=== PATIENT | female | born 1995 | race Hispanic/Latino ===

== ENCOUNTER 2017-06-16 02:54 | Observation (INO) | payer OTHER ==
[2017-06-16] MEDS ORDERED: Sodium Chloride 0.9% 1,000 ML IV STA (03:16)
[2017-06-16] MEDS ORDERED: Iohexol 240 (50 ml) PO ONE (03:21)
[2017-06-16 03:32] LABS: RBC URINE 16 /hpf (0-3); URINE BACTERIA RARE (<OCC); URINE BILIRUBIN NEGATIVE (NEGATIVE); URINE BLOOD NEGATIVE (NEGATIVE); URINE COLOR YELLOW (YELLOW); URINE GLUCOSE (UA) NEG (Normal); URINE KETONE NEGATIVE (NEGATIVE); URINE LEUKOCYTE ESTERASE MOD Leu/uL (Negative); URINE PROTEIN 30 mg/dL (NEGATIVE); WBC URINE 1 /hpf (0-5)
[2017-06-16] MEDS ORDERED: Iohexol 240 (50 ml) ONE (03:32)
[2017-06-16 03:40] LABS: BASO % 0.2 % (0.0-2.0); EOS # 0.3 K/uL (0.0-0.7); EOS % 1.8 % (0.0-4.0); HEMATOCRIT 37.5 % (34.0-47.0); LYMPH # 1.6 K/uL (1.0-4.3); LYMPH % 10.7 % (20.0-40.0); MEAN CELL VOLUME 81.4 fl (81.0-99.0); MEAN CORPUSCULAR HEMOGLOBIN 26.9 pg (27.0-31.0); MEAN PLATELET VOLUME 7.4 fl (7.2-11.7); MONO # 0.6 K/uL (0.0-0.8); MONO % 4.4 % (0.0-10.0); NEUT # 12.1 K/uL (1.8-7.0); NEUT % 82.9 % (50.0-75.0); RED CELL DISTRIBUTION WIDTH 14.1 % (11.5-14.5); WHITE BLOOD COUNT 14.5 K/uL (4.8-10.8)
--- NOTE | 2017-06-16 03:46 | ED PDOC ---
HPI: Abdomen Time Seen by Provider: 06/16/17 03:07 Chief Complaint (Nursing): Abdominal Pain Chief Complaint (Provider): Abdominal pain History Per: Patient History/Exam Limitations: no limitations Onset/Duration Of Symptoms: Hrs (x5) Current Symptoms Are (Timing): Still Present Context: Food Associated Symptoms: Nausea, Vomiting, Constipation. denies: Diarrhea Additional Complaint(s): Summer Quinn is a 21 year old female, with no past medical history, who presents to the emergency department complaining of an acute onset abdominal pain associated with nausea and vomiting onse since 10pm after eating [place]anche[place]. Patient describes the pain as constant and rates it a 9 out of 10. She did not take any medication prior to arrival. Patient denies diarrhea but states las bowel movement was at 8pm. No further medical complaints. PMD: None provided. Past Medical History Reviewed: Historical Data, Nursing Documentation, Vital Signs Vital Signs: Last Vital Signs Temp 98.1 F 06/17/17 00:18 Pulse 76 06/17/17 00:18 Resp 20 06/17/17 00:18 BP 103/57 L 06/17/17 00:18 Pulse Ox 100 06/17/17 00:18 - Family History Family History: States: Unknown Family Hx - Social History Current smoker - smoking cessation education provided: No Alcohol: Occasional Drugs: Denies - Home Medications Home Medications: Ambulatory Orders Medication Instructions Recorded No Known Home Med 06/16/17 - Allergies Allergies/Adverse Reactions: Allergies Allergy/AdvReac Type Severity Reaction Status Date / Time No Known Allergies Allergy Verified 10/03/15 11:20 Review of Systems ROS Statement: Except As Marked, All Systems Reviewed And Found Negative Gastrointestinal: Positive for: Nausea, Vomiting (x1 episode), Abdominal Pain, Constipation. Negative for: Diarrhea Physical Exam - Reviewed Nursing Documentation Reviewed: Yes Vital Signs Reviewed: Yes - Physical Exam Appears: Positive for: Non-toxic, No Acute Distress, Uncomfortable Head Exam: Positive for: ATRAUMATIC, NORMAL INSPECTION, NORMOCEPHALIC Skin: Positive for: Normal Color, Warm, Dry Eye Exam: Positive for: EOMI, Normal appearance, PERRL Neck: Positive for: Normal, Painless ROM, Supple Cardiovascular/Chest: Positive for: Regular Rate, Rhythm. Negative for: Murmur Respiratory: Positive for: Normal Breath Sounds. Negative for: Respiratory Distress Gastrointestinal/Abdominal: Positive for: Bowel Sounds, Tenderness (mild diffused abd tenderness worst in epigastric and RUQ area. ) Back: Positive for: Normal Inspection (No midline tenderness). Negative for: L CVA Tenderness, R CVA Tenderness Extremity: Positive for: Normal ROM Neurologic/Psych: Positive for: Alert, Oriented - Laboratory Results Result Diagrams: 06/16/17 03:30 06/16/17 03:30 - ECG O2 Sat by Pulse Oximetry: 99 (RA) Pulse Ox Interpretation: Normal Medical Decision Making Medical Decision Making: Initial Impression: 21 year old female with abdominal postpandrial Initial Plan: --Abd Pelvis PO & IV Contrast [CT] --CMP --Lipase --Urine dipstick --Urine --CBC w/ differential --Pepcid 20 mg IV --Omnipaque 50 ml --Morphine 4 mg IVP --NS IV 1,000 ml @ 1,000 mls/hr --Zofran Inj 4mg IV --reevaluation -Pt signed out to Dr. Mo pending US Scribe Attestation: Documented by Omid Lawson, acting as a scribe for Olaf Arce MD. Provider Scribe Attestation: All medical record entries made by the Scribe were at my direction and personally dictated by me. I have reviewed the chart and agree that the record accurately reflects my personal performance of the history, physical exam, medical decision making, and the department course for this patient. I have also personally directed, reviewed, and agree with the discharge instructions and disposition. Disposition - Clinical Impression Clinical Impression: Abdominal pain, IUD migration, Disorder of appendix - Patient ED Disposition Is Patient to be Admitted: Transfer of Care - Disposition Disposition: Transfer of Care Disposition Time: 07:00 Condition: FAIR Patient Signed Over To: Sea Mo
[2017-06-16 03:47] LABS: ALB/GLOB RATIO 1.4 (1.0-2.1); ALKALINE PHOSPHATASE 73 U/L (38-126); ALT/SGPT 31 U/L (9-52); AST/SGOT 26 U/L (14-36); BILIRUBIN,TOTAL 0.1 mg/dl (0.2-1.3); BLOOD UREA NITROGEN 13 mg/dl (7-17); CALCIUM 8.8 mg/dL (8.4-10.2); CARBON DIOXIDE 24 mmol/L (22-30); CHLORIDE 105 mmol/L (98-107); GFR AFRICAN-AMERICAN > 60; GLUCOSE,RANDOM 101 mg/dL (65-105); LIPASE 120 U/L (23-300); POTASSIUM 3.7 MMOL/L (3.6-5.0); SODIUM 142 mmol/l (132-148); TOTAL PROTEIN 7.7 G/DL (6.3-8.2)
[2017-06-16] MEDS ORDERED: Sodium Chloride 0.9% 50 ML IV ONE (06:00)
[2017-06-16] MEDS ORDERED: Iohexol 300 100 ML IJ ONE (06:00)
--- NOTE | 2017-06-16 07:36 | ED PDOC ---
- Laboratory Results Result Diagrams: 06/16/17 03:30 06/16/17 03:30 - ECG O2 Sat by Pulse Oximetry: 99 (RA) Pulse Ox Interpretation: Normal Medical Decision Making Medical Decision Making: Time: 653 --Abd/Pelvis CT FINDINGS: Lower thorax: Small hiatal hernia with delayed emptying at the gastroesophageal reflux. There is bibasilar atelectasis. ABDOMEN: Liver: Fatty liver. Gallbladder and bile ducts: Unremarkable. No ductal dilation. Pancreas: Unremarkable. No mass. No ductal dilation. Spleen: Unremarkable. No splenomegaly. Adrenals: Unremarkable. No mass. Kidneys and ureters: Unremarkable. No solid mass. No hydronephrosis. Stomach and bowel: Large amount of stool in the colon. Correlation with patient' s clinical history of constipation is recommended. There are nonspecific fluid filled small bowel loops. These findings can represent ileus versus enteritis versus slow transit versus peristalsis. Appendix: There is fluid distention of the appendix seen on image 142 series 3 measuring 7 mm. No obstructing appendicolith is identified. No significant surrounding inflammatory change is noted. Borderline indeterminate appendix.Correlation with clinical evaluation and further workup or followup as recommended by patient's clinical data. PELVIS: Bladder: Unremarkable. Reproductive: Endometrial stripe thickening or fluid. There is migration of the IUD into the lower uterine segment. MOTION PICTURE OPERATOR evaluation is recommended. Enhancing involuting right ovarian dominant follicle measuring 1.7 cm. High riding left ovary with left ovarian dominant cyst measuring 3.1 cm. ABDOMEN and PELVIS: Intraperitoneal space: Small amount of free pelvic fluid. No free air. Bones/joints: No acute fracture. No dislocation. Soft tissues: Bilateral inguinal herniation of fat. Vasculature: Unremarkable. No abdominal aortic aneurysm. Lymph nodes: Bilateral groin lymph nodes. IMPRESSION: 1. Endometrial stripe thickening or fluid. There is migration of the IUD into the lower uterine segment. MOTION PICTURE OPERATOR evaluation is recommended. 2. Small amount of free pelvic fluid. 3. Enhancing involuting right ovarian dominant follicle measuring 1.7 cm. High riding left ovary with left ovarian dominant cyst measuring 3.1 cm. 4. There is mild fluid distention of the appendix seen on image 142 series 3 measuring 7 mm. No obstructing appendicolith is identified. No significant surrounding inflammatory change is noted. Borderline indeterminate appendix.Correlation with clinical evaluation and further workup or followup as recommended by patient's clinical data. --Transvag US ordered for further investigation. Time: 700 --Patient endorsed from Dr. Arce to me. --Pending Transvaginal US, reevaluation, and final disposition. Time: 1035 --Transvag US FINDINGS: UTERUS: Measures 7.3 x 5.4 x 3.7 cm. Normal in size and appearance. No fibroid or other mass lesion seen. ENDOMETRIUM: Measures 6 mm in diameter. There is an IUD seen within central uterine cavity, however this is noted to be within the lower uterine segment. This appears to have migrated from normal position but should be correlated clinically. This was noted on the CT scan. No significant fluid or endometrial complex mass is identified. CERVIX: No cervical abnormality identified. RIGHT OVARY: Measures 3.8 x 3.0 x 2.5 cm. No solid mass. Normal flow. LEFT OVARY: Measures 2.5 x 2.2 x 1.1 cm. No solid mass. Normal flow. FREE FLUID: Minor amount of fluid in the cul-de-sac. OTHER FINDINGS: None. IMPRESSION: IUD noted within the lower uterine segment region and will require further clinical follow-up and gynecologic consultation. No evidence of adnexal mass. No ultrasound evidence of torsion. Scribe Attestation: Documented by Megan Velasquez, acting as a scribe for Sea Mo MD. Provider Scribe Attestation: All medical record entries made by the Scribe were at my direction and personally dictated by me. I have reviewed the chart and agree that the record accurately reflects my personal performance of the history, physical exam, medical decision making, and the department course for this patient. I have also personally directed, reviewed, and agree with the discharge instructions and disposition. 1110: Stable. AAOx3. IUD in uterine segment. OBGYN called. 1122: Dr. Pittman will evaluate pt. 1245: Dr. Pittman removed IUD. Concern for CT findings of appendix. Surgery paged. 1259: Stable. Dr. Adame to see pt. Wants admit for obs. Spoke with Dr. Izaguirre. Will admit obs. No antibiotics at this time. Disposition - Clinical Impression Clinical Impression: Abdominal pain, IUD migration, Disorder of appendix - POA Present On Arrival: None - Disposition Disposition: Hospitalized as Observation Patient Disposition Time: 13:04 Condition: STABLE
--- NOTE | 2017-06-16 09:24 | CT ---
PROCEDURE: CT Abdomen and Pelvis with contrast HISTORY: abd pain COMPARISON: 12/21/2014 TECHNIQUE: Contrast dose: 95 milliliters omni 300 Radiation dose: Total exam DLP = 1015 mGy-cm. This CT exam was performed using one or more of the following dose reduction techniques: Automated exposure control, adjustment of the mA and/or kV according to patient size, and/or use of iterative reconstruction technique. FINDINGS: LOWER THORAX: No focal infiltrate is seen. Minimal stable scarring or atelectasis is seen laterally in the right lower lobe. Distal esophagus is unremarkable. There is moderate distention of the stomach with oral contrast and debris. No gastric wall thickening is seen. Duodenum is unremarkable. LIVER: No focal liver mass is seen. Liver is mildly fatty infiltrated without evidence of intrahepatic ductal dilatation. GALLBLADDER AND BILE DUCTS: Unremarkable. PANCREAS: Unremarkable. No gross lesion or ductal dilatation. SPLEEN: Unremarkable. ADRENALS: Unremarkable. No mass. KIDNEYS AND URETERS: Unremarkable. No hydronephrosis. No solid mass. VASCULATURE: Unremarkable. No aortic aneurysm. BOWEL: Some mild fluid-filled small bowel loops and contrast filled small bowel loops are noted without fold thickening. No small bowel obstruction is seen. There is additionally mild to moderate residual fecal material throughout the colon without colonic wall thickening or pericolonic inflammatory change. Rectosigmoid region is unremarkable. APPENDIX: Appendix is noted to be mildly distended and fluid-filled without periappendiceal inflammatory changes. This should be further correlated with patient's exam and laboratory values. PERITONEUM: No free intraperitoneal air is noted. No mesenteric thickening is noted. Minimal cul-de-sac fluid is noted, more than likely physiologic. LYMPH NODES: Unremarkable. No enlarged lymph nodes. BLADDER: Unremarkable. REPRODUCTIVE: There is an intrauterine device appreciated is noted within the central uterine canal, although appears slightly lower than normally expected possibly within the lower uterine segment. Correlation for position is suggested. There is also mild amount of endometrial complex fluid identified which could be related to phase of menstruation. A few small right ovarian follicles are noted. One appears to have some slight enhancement and may reflect involuting follicle. Left ovary contains a few small follicles but is otherwise normal in size. BONES: No acute fracture. OTHER FINDINGS: None. IMPRESSION: Migration of the patient's intrauterine device into the lower uterine segment region. Gynecologic evaluation is suggested. Small amount of nonspecific low-density fluid in the endometrial canal. Small bilateral ovarian follicles. Mildly distended appendix with fluid measuring up to 7 millimeters. No periappendiceal inflammatory changes. Correlation with patient's laboratory values and exam would be suggested. Appendicitis cannot fully be excluded. Probable mild nonspecific and possible physiologic fluid within the cul-de-sac. No evidence of bowel obstruction. Distended stomach with oral contrast and debris. This agrees with preliminary report.
--- NOTE | 2017-06-16 10:37 | US ---
HISTORY: IUD; lower abd pain COMPARISON: CT scan same day TECHNIQUE: Real-time transabdominal and transvaginal ultrasound examination of the pelvis were performed. FINDINGS: UTERUS: Measures 7.3 x 5.4 x 3.7 cm. Normal in size and appearance. No fibroid or other mass lesion seen. ENDOMETRIUM: Measures 6 mm in diameter. There is an IUD seen within central uterine cavity, however this is noted to be within the lower uterine segment. This appears to have migrated from normal position but should be correlated clinically. This was noted on the CT scan. No significant fluid or endometrial complex mass is identified. CERVIX: No cervical abnormality identified. RIGHT OVARY: Measures 3.8 x 3.0 x 2.5 cm. No solid mass. Normal flow. LEFT OVARY: Measures 2.5 x 2.2 x 1.1 cm. No solid mass. Normal flow. FREE FLUID: Minor amount of fluid in the cul-de-sac. OTHER FINDINGS: None. IMPRESSION: IUD noted within the lower uterine segment region and will require further clinical follow-up and gynecologic consultation. No evidence of adnexal mass. No ultrasound evidence of torsion.
--- NOTE | 2017-06-16 13:42 | CP.PCM.HP ---
History of Present Illness - History of Present Illness History of Present Illness: CC: ABD PAIN HPI: 21 F no PMH presents with a one day hx of acute onset mod to severe cramping RLQ abdominal pain, waxing and waning in nature, eventually migrating to midepigastric area, associated with one episode of NBNB emesis and a feeling of bloating. In ER, pt was found to have a displaced IUD, which was removed by OBGYN. Pt was also seen by surgery for equivocal imaging results for acute appendicitis. WBC 14.5, afebrile, HD stable, +tenderness RLQ. Will place pt on OBS and reassess tomorrow. No antibiotics, pain control. ROS: Per HPI, all other systems reviewed and neg PMH: denies PSH: denies FH: denies SH: denies tobacco, ETOH, IVDU NKDA Vitals Reviewed GEN: WDWN, ALERT, COOPERATIVE HEENT: NCAT, PERRL, EOMI HEART: RRR, +S1S2, NO MRG LUNG: CTAB, NO WRR ABD: SOFT, +tender RLQ, mild distension, NO HSM, NO MASSES EXT: NORMAL PEDAL PULSES, GOOD CAPILLARY REFILL NEURO: AAOX3, STRENGTH EQUAL BILATERAL UPPER AND LOWER EXTREMITIES SKIN: WARM, DRY PSYCH: NORMAL MOOD, NORMAL AFFECT LABS 06/16/17 03:30 06/16/17 03:30 IMAGING STUDIES Pelvis/Transvaginal US: IUD noted in lower uterine segment region and will require further clinical follow up and obstetrics gynecology md consultation. CT abdomen and pelvis PO and IV contrast: Migration of IUD into lower uterine segment region. Small amount of nonspecific low density fluid in the endometrial canal. Bilateral ovarian follicles, small. Mildly distended appendix fluid measuring up to 7 mm. No [place] and see old inflammatory changes. Correlation with lab values and exam suggested. Appendicitis cannot be fully excluded. Next Probable mid nonspecific and possible physiologic fluid within the cul-de-sac. No bowel obstruction. Distended stomach with oral contrast and debris. ASSESSMENT AND PLAN 21 F no PMH presents with a one day hx of acute onset mod to severe cramping RLQ abdominal pain, waxing and waning in nature, eventually migrating to midepigastric area, associated with one episode of NBNB emesis and a feeling of bloating. In ER, pt was found to have a displaced IUD, which was removed by OBGYN. Pt was also seen by surgery for equivocal imaging results for acute appendicitis. WBC 14.5, afebrile, HD stable, +tenderness RLQ. Will place pt on OBS and reassess tomorrow. No antibiotics, pain control. Discussed with ER physician. Abdominal pain Concern for appendicitis CT equivocal for appendicitis Surgery consultation Dr. Adame, discussed, no antibiotics at this time. Will observe, and reassess tomorrow. repeat labs in a.m. Displaced IUD Transvaginal ultrasound confirmed as well as CT abdomen and pelvis PIPE FITTER MAINTENANCE consulted in ER IUD successfully removed by PIPE FITTER MAINTENANCE in ER. Present on Admission - Present on Admission Any Indicators Present on Admission: No Past Patient History - Past Social History Alcohol: Occasional Drugs: Denies - PSYCHIATRIC Hx Substance Use: No - SURGICAL HISTORY Hx Surgeries: No - ANESTHESIA Hx Anesthesia: No Meds Allergies/Adverse Reactions: Allergies Allergy/AdvReac Type Severity Reaction Status Date / Time No Known Allergies Allergy Verified 10/03/15 11:20 Results - Vital Signs Recent Vital Signs: Last Vital Signs Temp 98.5 F 06/16/17 10:29 Pulse 69 06/16/17 10:29 Resp 19 06/16/17 10:29 BP 117/68 06/16/17 10:29 Pulse Ox 99 06/16/17 13:04 - Labs Result Diagrams: 06/16/17 03:30 06/16/17 03:30 Labs: Laboratory Results - last 24 hr 06/16/17 06/16/17 06/16/17 03:22 03:30 03:30 WBC 14.5 H D RBC 4.61 Hgb 12.4 Hct 37.5 MCV 81.4 D MCH 26.9 L MCHC 33.0 RDW 14.1 Plt Count 406 H MPV 7.4 Neut % (Auto) 82.9 H Lymph % (Auto) 10.7 L [place] % (Auto) 4.4 Eos % (Auto) 1.8 Baso % (Auto) 0.2 Neut # 12.1 H Lymph # 1.6 [place] # 0.6 Eos # 0.3 Baso # 0.0 Sodium 142 Potassium 3.7 Chloride 105 Carbon Dioxide 24 Anion Gap 16 BUN 13 Creatinine 0.7 Est GFR ( Amer) > 60 Est GFR (Non-Af Amer) > 60 Random Glucose 101 Calcium 8.8 Total Bilirubin 0.1 L AST 26 ALT 31 Alkaline Phosphatase 73 Total Protein 7.7 Albumin 4.5 Globulin 3.2 Albumin/Globulin Ratio 1.4 Lipase 120 Urine Color Yellow Urine Clarity Cloudy Urine pH 6.0 Ur Specific [place] 1.031 H Urine Protein 30 Urine Glucose (UA) Neg Urine Ketones Negative Urine Blood Negative Urine Nitrate Negative Urine Bilirubin Negative Urine Urobilinogen 2.0 H Ur Leukocyte Esterase Mod Urine RBC (Auto) 16 H Urine Microscopic WBC 1 Ur Squamous Epith Cells 16 H Amorphous Sediment Occ H Urine Bacteria Rare
--- NOTE | 2017-06-16 18:11 | CP.PCM.CON ---
History of Present Illness - History of Present Illness History of Present Illness: General Surgery consult for Dr. Adame Consulted for: RLQ abdominal pain, R/O appendicitis Patient is a 21F with no significant PMH who presents to the ER with one day of right lower quadrant abdominal pain. Patient states that pain began last night and was originally in the bilateral lower quadrants and now is only in the RLQ. Patient states that she also has middle back pain. Patient denies any nausea, vomiting, diarrhea, constipation, dysuria, hematuria, fevers, chills, chest pain , SOB or any other symptoms. Patient's last menstrual period was on 05/27 PMH: none PSH: none All NKDA Social: denies tobacco or illicit drugs, drinks 5 beers/week Review of Systems - Review of Systems All systems: reviewed and no additional remarkable complaints except (as per HPI ) - Constitutional Constitutional: Anorexia. absent: Chills, Fever - Respiratory Respiratory: absent: Cough, Dyspnea, Dyspnea on Exertion - Gastrointestinal Gastrointestinal: As Per HPI, Abdominal Pain, Bloating. absent: Diarrhea, Hematochezia, Melena, Nausea, Vomiting - Genitourinary Genitourinary: absent: Change in Urinary Stream, Difficulty Urinating, Dysuria, Hematuria - Reproductive: Female Reproductive:Female: As Per HPI - Menstruation Menstruation: As Per HPI - Musculoskeletal Musculoskeletal: Back Pain. absent: Numbness, Tingling - Neurological Neurological: absent: Numbness, Focal Weakness, Tingling, Weakness Past Patient History - Past Medical History & Family History Past Medical History?: No - Past Social History Alcohol: Occasional Drugs: Denies - CARDIAC Hx Cardiac Disorders: No - PULMONARY Hx Respiratory Disorders: No - NEUROLOGICAL Hx Neurological Disorder: No - HEENT Hx HEENT Problems: No - RENAL Hx Chronic Kidney Disease: No - ENDOCRINE/METABOLIC Hx Endocrine Disorders: No - HEMATOLOGICAL/ONCOLOGICAL Hx AIDS: No Hx Human Immunodeficiency Virus (HIV): No - INTEGUMENTARY Hx Dermatological Problems: No - MUSCULOSKELETAL/RHEUMATOLOGICAL Hx Musculoskeletal Disorders: No - GASTROINTESTINAL Hx Gastrointestinal Disorders: No - GENITOURINARY/GYNECOLOGICAL Hx Genitourinary Disorders: No Other/Comment: IUD placement - PSYCHIATRIC Hx Psychophysiologic Disorder: No Hx Substance Use: No - SURGICAL HISTORY Hx Surgeries: No - ANESTHESIA Hx Anesthesia: No Meds Allergies/Adverse Reactions: Allergies Allergy/AdvReac Type Severity Reaction Status Date / Time No Known Allergies Allergy Verified 10/03/15 11:20 - Medications Medications: Current Medications Docusate Sodium (Colace) 100 mg PO BID LLUVIA Last Admin: 06/16/17 17:27 Dose: 100 mg Influenza Virus Vaccine (Afluria (Pf)(18yr & Older)) 0.5 ml IM .ONCE ONE Stop: 06/17/17 16:39 Ketorolac Tromethamine (Toradol) 15 mg IVP Q6 PRN PRN Reason: Pain, moderate (4-7) Last Admin: 06/16/17 17:27 Dose: 15 mg Ketorolac Tromethamine (Toradol) 30 mg IVP Q6 PRN PRN Reason: Pain, severe (8-10) Ondansetron HCl (Zofran Inj) 4 mg IVP Q6 PRN PRN Reason: Nausea/Vomiting Last Admin: 06/16/17 17:26 Dose: 4 mg Physical Exam - Constitutional Appears: Non-toxic, No Acute Distress - Head Exam Head Exam: ATRAUMATIC, NORMOCEPHALIC - Eye Exam Eye Exam: Normal appearance. absent: Conjunctival injection, Scleral icterus - ENT Exam ENT Exam: Mucous Membranes Moist, Normal Oropharynx - Respiratory Exam Respiratory Exam: NORMAL BREATHING PATTERN. absent: Accessory Muscle Use, Respiratory Distress - Cardiovascular Exam Cardiovascular Exam: RRR - GI/Abdominal Exam GI & Abdominal Exam: Soft, Tenderness (RLQ moderate tenderness. Mild tenderness in LLQ). absent: Distended, Guarding, Rigid Additional comments: negative rovsings's sign, positive psoas sign - Extremities Exam Extremities exam: Positive for: pedal pulses present. Negative for: calf tenderness, pedal edema - Back Exam Back exam: CVA tenderness (R). absent: CVA tenderness (L), rash noted - Neurological Exam Neurological exam: Alert, Oriented x3 - Skin Skin Exam: Dry, Normal Color, Warm Results - Vital Signs Recent Vital Signs: Last Vital Signs Temp 98.2 F 06/16/17 16:17 Pulse 71 06/16/17 16:17 Resp 17 06/16/17 16:17 BP 104/58 L 06/16/17 16:17 Pulse Ox 99 06/16/17 16:17 - Labs Result Diagrams: 06/16/17 03:30 06/16/17 03:30 Labs: Laboratory Results - last 24 hr 06/16/17 06/16/17 06/16/17 03:22 03:30 03:30 WBC 14.5 H D RBC 4.61 Hgb 12.4 Hct 37.5 MCV 81.4 D MCH 26.9 L MCHC 33.0 RDW 14.1 Plt Count 406 H MPV 7.4 Neut % (Auto) 82.9 H Lymph % (Auto) 10.7 L [place] % (Auto) 4.4 Eos % (Auto) 1.8 Baso % (Auto) 0.2 Neut # 12.1 H Lymph # 1.6 [place] # 0.6 Eos # 0.3 Baso # 0.0 Sodium 142 Potassium 3.7 Chloride 105 Carbon Dioxide 24 Anion Gap 16 BUN 13 Creatinine 0.7 Est GFR ( Amer) > 60 Est GFR (Non-Af Amer) > 60 Random Glucose 101 Calcium 8.8 Total Bilirubin 0.1 L AST 26 ALT 31 Alkaline Phosphatase 73 Total Protein 7.7 Albumin 4.5 Globulin 3.2 Albumin/Globulin Ratio 1.4 Lipase 120 Urine Color Yellow Urine Clarity Cloudy Urine pH 6.0 Ur Specific [place] 1.031 H Urine Protein 30 Urine Glucose (UA) Neg Urine Ketones Negative Urine Blood Negative Urine Nitrate Negative Urine Bilirubin Negative Urine Urobilinogen 2.0 H Ur Leukocyte Esterase Mod Urine RBC (Auto) 16 H Urine Microscopic WBC 1 Ur Squamous Epith Cells 16 H Amorphous Sediment Occ H Urine Bacteria Rare - Imaging and Cardiology CT scan - abdomen Status: Image reviewed by me, Report reviewed by me Assessment & Plan - Assessment and Plan (Free Text) Assessment: 21F with RLQ pain, appendicitis vs. gynecologic source Plan: -No indication for emergent surgery. CT scan showed dilated appendix with no wall thickening or surrounding fat stranding, but fluid in the right pelvis around a possibly involuted ovary -Will keep under observations and closely monitor clinical course -Follow up gynecology recs -Trend CBC, BMP -Monitor vitals -Recommend NPO from a surgical standpoint -Serial abdominal exams -IV antibiotics -IV fluids -PRN pain and nausea medications -OOB Thank you for this consult Seen and discussed with Dr. Deep Gardner, PGY2
[2017-06-17 06:56] LABS: BLOOD UREA NITROGEN 10 mg/dl (7-17); CARBON DIOXIDE 22 mmol/L (22-30); CHLORIDE 108 mmol/L (98-107); GFR AFRICAN-AMERICAN > 60; GLUCOSE,RANDOM 87 mg/dL (65-105); POTASSIUM 3.8 MMOL/L (3.6-5.0); SODIUM 143 mmol/l (132-148)
[2017-06-17 06:57] LABS: ALB/GLOB RATIO 1.3 (1.0-2.1); ALKALINE PHOSPHATASE 61 U/L (38-126); ALT/SGPT 29 U/L (9-52); AST/SGOT 20 U/L (14-36); BILIRUBIN,TOTAL 0.3 mg/dl (0.2-1.3); CALCIUM 8.7 mg/dL (8.4-10.2)
[2017-06-17 07:00] LABS: BASO % 0.5 % (0.0-2.0); EOS # 0.4 K/uL (0.0-0.7); HEMATOCRIT 34.9 % (34.0-47.0); LYMPH # 1.7 K/uL (1.0-4.3); LYMPH % 19.1 % (20.0-40.0); MEAN CELL VOLUME 82.6 fl (81.0-99.0); MEAN CORPUSCULAR HEMOGLOBIN 27.2 pg (27.0-31.0); MEAN PLATELET VOLUME 7.8 fl (7.2-11.7); MONO # 0.7 K/uL (0.0-0.8); MONO % 7.9 % (0.0-10.0); NEUT # 6.2 K/uL (1.8-7.0); NEUT % 68.5 % (50.0-75.0); RED CELL DISTRIBUTION WIDTH 14.2 % (11.5-14.5)
--- NOTE | 2017-06-17 10:04 | CP.PCM.PN ---
Subjective - Date & Time of Evaluation Date of Evaluation: 06/17/17 Time of Evaluation: 07:10 - Subjective Subjective: Patient s/e at bedside. NAEO. Pt states she only has pain upon movement. Denies nausea, vomiting, fevers, chills, tolerated regular diet yesterday Objective - Vital Signs/Intake and Output Vital Signs (last 24 hours): Temp Pulse Resp BP Pulse Ox 98.5 F 77 18 126/59 L 100 06/17/17 05:04 06/17/17 05:04 06/17/17 05:04 06/17/17 05:04 06/17/17 05:04 - Medications Medications: Current Medications Docusate Sodium (Colace) 100 mg PO BID LLUVIA Last Admin: 06/16/17 17:27 Dose: 100 mg Influenza Virus Vaccine (Afluria (Pf)(18yr & Older)) 0.5 ml IM .ONCE ONE Stop: 06/17/17 16:39 Ketorolac Tromethamine (Toradol) 15 mg IVP Q6 PRN PRN Reason: Pain, moderate (4-7) Last Admin: 06/16/17 17:27 Dose: 15 mg Ketorolac Tromethamine (Toradol) 30 mg IVP Q6 PRN PRN Reason: Pain, severe (8-10) Ondansetron HCl (Zofran Inj) 4 mg IVP Q6 PRN PRN Reason: Nausea/Vomiting Last Admin: 06/16/17 17:26 Dose: 4 mg - Labs Labs: 06/17/17 05:30 06/17/17 05:30 - Constitutional Appears: Non-toxic, No Acute Distress - Head Exam Head Exam: ATRAUMATIC, NORMOCEPHALIC - Eye Exam Eye Exam: Normal appearance. absent: Conjunctival injection, Scleral icterus - ENT Exam ENT Exam: Mucous Membranes Moist - Respiratory Exam Respiratory Exam: NORMAL BREATHING PATTERN. absent: Accessory Muscle Use, Respiratory Distress - Cardiovascular Exam Cardiovascular Exam: RRR - GI/Abdominal Exam GI & Abdominal Exam: Soft, Tenderness (moderately tender RLQ). absent: Distended, Guarding, Rigid, Rebound - Extremities Exam Extremities Exam: absent: Calf Tenderness, Pedal Edema, Tenderness - Neurological Exam Neurological Exam: Alert, Awake, Oriented x3 - Psychiatric Exam Psychiatric exam: Normal Affect, Normal Mood - Skin Skin Exam: Dry, Intact, Normal Color, Warm Assessment and Plan - Assessment and Plan (Free Text) Assessment: 21F with improving RLQ painj Plan: -No indication for surgery. Patient afebrile, normocardic clinically improving and tolerating regular diet. -Patient is clear for discharge from a surgical standpoint. Patient may follow up with Dr. Adame in his office if she has any further problems -Please reach out to the surgical team for any further questions or concerns. Thank you for this consult Seen and discussed with Dr. Deep Gardner, PGY2
[2017-06-17] MEDS ORDERED: Influenza Vaccine 18yr & older 0.5 ML/45 MCG SYR IM ONE (13:30)
[2017-06-17 15:30] VITALS: BP 102/60; PULSE 71; RESP 17; TEMP 98.6; O2SAT 97
--- NOTE | 2017-06-17 15:37 | CP.PCM.DIS ---
Provider - Provider Date of Admission: 06/16/17 13:00 Attending physician: Keysha Izaguirre DO Primary care physician: JAMES Consults: Dr Adame Time Spent in preparation of Discharge (in minutes): 25 Diagnosis - Discharge Diagnosis (1) Abdominal pain Status: Acute Comment: pain spontaneously relieved. able to tolerate regular diet. discharged in stable condition Hospital Course - Lab Results Lab Results: Most Recent Lab Values WBC 9.0 K/uL (4.8-10.8) 06/17/17 05:30 RBC 4.23 Mil/uL (3.80-5.20) 06/17/17 05:30 Hgb 11.5 g/dL (12.0-16.0) L 06/17/17 05:30 Hct 34.9 % (34.0-47.0) 06/17/17 05:30 MCV 82.6 fl (81.0-99.0) 06/17/17 05:30 MCH 27.2 pg (27.0-31.0) 06/17/17 05:30 MCHC 33.0 g/dL (33.0-37.0) 06/17/17 05:30 RDW 14.2 % (11.5-14.5) 06/17/17 05:30 Plt Count 361 K/uL (130-400) 06/17/17 05:30 MPV 7.8 fl (7.2-11.7) 06/17/17 05:30 Neut % (Auto) 68.5 % (50.0-75.0) 06/17/17 05:30 Lymph % (Auto) 19.1 % (20.0-40.0) L 06/17/17 05:30 George % (Auto) 7.9 % (0.0-10.0) 06/17/17 05:30 Eos % (Auto) 4.0 % (0.0-4.0) 06/17/17 05:30 Baso % (Auto) 0.5 % (0.0-2.0) 06/17/17 05:30 Neut # 6.2 K/uL (1.8-7.0) 06/17/17 05:30 Lymph # 1.7 K/uL (1.0-4.3) 06/17/17 05:30 George # 0.7 K/uL (0.0-0.8) 06/17/17 05:30 Eos # 0.4 K/uL (0.0-0.7) 06/17/17 05:30 Baso # 0.0 K/uL (0.0-0.2) 06/17/17 05:30 Sodium 143 mmol/l (132-148) 06/17/17 05:30 Potassium 3.8 MMOL/L (3.6-5.0) 06/17/17 05:30 Chloride 108 mmol/L (98-107) H 06/17/17 05:30 Carbon Dioxide 22 mmol/L (22-30) 06/17/17 05:30 Anion Gap 17 (10-20) 06/17/17 05:30 BUN 10 mg/dl (7-17) 06/17/17 05:30 Creatinine 0.5 mg/dL (0.7-1.2) L 06/17/17 05:30 Est GFR ( Amer) > 60 06/17/17 05:30 Est GFR (Non-Af Amer) > 60 06/17/17 05:30 Random Glucose 87 mg/dL (65-105) 06/17/17 05:30 Calcium 8.7 mg/dL (8.4-10.2) 06/17/17 05:30 Total Bilirubin 0.3 mg/dl (0.2-1.3) 06/17/17 05:30 AST 20 U/L (14-36) 06/17/17 05:30 ALT 29 U/L (9-52) 06/17/17 05:30 Alkaline Phosphatase 61 U/L (38-126) 06/17/17 05:30 Total Protein 7.0 G/DL (6.3-8.2) 06/17/17 05:30 Albumin 4.0 g/dL (3.5-5.0) 06/17/17 05:30 Globulin 3.0 gm/dL (2.2-3.9) 06/17/17 05:30 Albumin/Globulin Ratio 1.3 (1.0-2.1) 06/17/17 05:30 Lipase 120 U/L (23-300) 06/16/17 03:30 Urine Color Yellow (YELLOW) 06/16/17 03:22 Urine Clarity Cloudy (Clear) 06/16/17 03:22 Urine pH 6.0 (5.0-8.0) 06/16/17 03:22 Ur Specific Morris 1.031 (1.003-1.030) H 06/16/17 03:22 Urine Protein 30 mg/dL (NEGATIVE) 06/16/17 03:22 Urine Glucose (UA) Neg mg/dL (Normal) 06/16/17 03:22 Urine Ketones Negative mg/dL (NEGATIVE) 06/16/17 03:22 Urine Blood Negative (NEGATIVE) 06/16/17 03:22 Urine Nitrate Negative (NEGATIVE) 06/16/17 03:22 Urine Bilirubin Negative (NEGATIVE) 06/16/17 03:22 Urine Urobilinogen 2.0 mg/dL (0.2-1.0) H 06/16/17 03:22 Ur Leukocyte Esterase Mod Joanna/uL (Negative) 06/16/17 03:22 Urine RBC (Auto) 16 /hpf (0-3) H 06/16/17 03:22 Urine Microscopic WBC 1 /hpf (0-5) 06/16/17 03:22 Ur Squamous Epith Cells 16 /hpf (0-5) H 06/16/17 03:22 Amorphous Sediment Occ /ul (<OCC) H 06/16/17 03:22 Urine Bacteria Rare (<OCC) 06/16/17 03:22 - Hospital Course Hospital Course: 21 yo female with no significant PMH complained of RLQ abdominal pain accompanied with nausea and bloated feeling. She was admitted with abdominal pain r/o appendicitis. CT scan of the abdomen showed enlarged appendix but no wall thickening. The next day pain was relieved and WBC came down from 14.5 to 9 even without antibiotics. Surgical consult ruled that patient was not a surgical case and could be discharged as far as they are concern. She could be followed up by them if the patient want to or go to her PCP in [facility]. Discharge Exam - Head Exam Head Exam: ATRAUMATIC, NORMOCEPHALIC - Eye Exam Eye Exam: Normal appearance - ENT Exam ENT Exam: Mucous Membranes Moist - Respiratory Exam Respiratory Exam: absent: Rales, Rhonchi, Wheezes, Respiratory Distress - Cardiovascular Exam Cardiovascular Exam: REGULAR RHYTHM, +S1, +S2 - GI/Abdominal Exam GI & Abdominal Exam: Soft. absent: Tenderness - Rectal Exam Rectal Exam: Deferred - Back Exam Back exam: absent: tenderness - Neurological Exam Neurological exam: Alert, Oriented x3 - Psychiatric Exam Psychiatric exam: Normal Affect - Skin Skin Exam: Dry, Intact Discharge Plan - Follow Up Plan Condition: FAIR Disposition: HOME/ ROUTINE Instructions: Acute Abdominal Pain (DC), How To Wash Your Hands (GEN)
== END 2017-06-17 16:45 | disposition home or self-care (01) ==
LOC: H.ER 02:54 → H.ERHOLD 13:00 → H.PEDS 14:30
PROVIDERS: ADMIT Student in an Organized Health Care Education/Training Program; ATTEND Student in an Organized Health Care Education/Training Program
DX: T83.32XA Displacement of intrauterine contraceptive device, initial encounter (principal); Y76.2 Prosthetic and other implants, materials and accessory obstetric and gynecological devices associated with adverse incidents; R11.10 Vomiting, unspecified; R14.0 Abdominal distension (gaseous); M54.9 Dorsalgia, unspecified; R10.31 Right lower quadrant pain; R11.2 Nausea with vomiting, unspecified; Z23 Encounter for immunization
CPT/HCPCS: 36415; 58301; 74177; 76830; 76856; 80053; 81003; 81025; 83690; 85025; 88304; 90471; 96361; 96374; 96375; 96376; 99285; G0378; J1885; J2270; J2405; J7040; Q2035; Q9966; Q9967